=== PATIENT | male | born 1950 | race Caucasian/White ===

== ENCOUNTER 2022-10-23 11:53 | Inpatient (IN) | payer MEDICARE, OTHER ==
[~2022-10-23] VITALS: Ht 190.5 cm; Wt 109.8 kg
--- NOTE | 2022-10-23 13:20 | NUR ---
XRAY AT BEDSIDE
[2022-10-23] MEDS ORDERED: IV NS 0.9% 1,000 ML IV ONE (13:30)
[2022-10-23 13:52] LABS: BASOPHILS % (AUTO) 0.1 % (0.0-2.0); EOSINOPHILS % (AUTO) 0.2 % (0.0-6.0); HEMATOCRIT 44 % (39-51); HEMOGLOBIN 14.3 g/dL (13.5-17.5); LYMPHOCYTES # (AUTO) 0.5 K/uL (0.8-4.8); LYMPHOCYTES % (AUTO) 5.3 % (20.0-44.0); MEAN CORPUSCULAR HGB CONC 33 g/dl (31.0-36.0); MEAN CORPUSCULAR VOLUME 97 fL (80-96); MONOCYTES # (AUTO) 0.7 K/uL (0.1-1.30); MONOCYTES % (AUTO) 7.1 % (2.0-12.0); NEUTROPHILS % (AUTO) 87.3 % (43.0-81.0); PLATELET COUNT (AUTO) 223 K/uL (150-450); RED BLOOD CELL COUNT(AUTO) 4.49 MIL/uL (4.5-6.0); WHITE BLOOD COUNT (AUTO) 10.3 K/uL (4.3-11.0)
[2022-10-23 14:01] LABS: CALCIUM, SERUM 8.5 mg/dL (8.5-10.1); CARBON DIOXIDE 20 mmol/L (21-32); CHLORIDE 97 mmol/L (98-107); CREATININE 7.4 mg/dL (0.6-1.3); GLUCOSE 114 mg/dL (74-106); POTASSIUM 4.4 mmol/L (3.5-5.1); SODIUM SERUM 136 mmol/L (136-145)
--- NOTE | 2022-10-23 14:33 | NUR ---
Pt in room laying with hob elevated. Able to answer questions. Alert and oriented times 4. NO distress noted. Call light within reach.
[2022-10-23 14:47] LABS: UREA NITROGEN, BLOOD 130 mg/dL (7-18)
[2022-10-23] MEDS ORDERED: FUROSEMIDE 40 MG/4 ML VIAL ONE (14:57)
--- NOTE | 2022-10-23 14:59 | NUR ---
MOVE SHEET SUBMITTED.
[2022-10-23] MEDS ORDERED: FUROSEMIDE 40 MG/4 ML VIAL IV ONE (15:00)
--- NOTE | 2022-10-23 15:02 | NUR ---
Pt went to ct scan
--- NOTE | 2022-10-23 15:29 | NUR ---
[facility] CALLED MAKE UP ARTIST PAGED.
--- NOTE | 2022-10-23 16:29 | NUR ---
COVID SWAB COLLECTED AND SENT TO LAB
--- NOTE | 2022-10-23 17:09 | NUR ---
[facility] CALLED BENEFITS OFFICER PAGED.
[2022-10-23] MEDS ORDERED: ONDANSETRON HCL/PF 4 MG/2 ML VIAL IVP PRN (17:30)
[2022-10-23] MEDS ORDERED: ACETAMINOPHEN 325 MG TABLET PO PRN (17:30)
--- NOTE | 2022-10-23 18:11 | NUR ---
OLLIE ARGUELLO [phone] BROTHER
--- NOTE | 2022-10-23 19:12 | NUR ---
Pt in bed with head of bed elevated. Able to answer questions. Breathing even and unlabored. Using urinal at bedside. No signs of distress noted.
--- NOTE | 2022-10-23 19:51 | NUR ---
TERRITORY SUPERVISOR AT PT'S BEDSIDE
--- NOTE | 2022-10-23 20:33 | NUR ---
REPORT GIVEN TO BILLY MASON RN FOR JAYCE
[2022-10-23] MEDS ORDERED: HEPARIN SODIUM, PORCINE 5000 UNITS/1 ML VIAL SQ SCH (21:00)
--- NOTE | 2022-10-23 21:12 | NUR ---
US TECH AT PT'S BEDSIDE
--- NOTE | 2022-10-23 21:38 | NUR ---
+dvt R proximal mid superficial femoral vein, R popliteal vein
--- NOTE | 2022-10-23 21:44 | NUR ---
+dvt R proximal mid superficial femoral vein, R popliteal vein Notified Dustin ANDREW
--- NOTE | 2022-10-23 22:12 | NUR ---
PT TRANSFERRED TO [facility] 113-2 VIA ACLS PROTOCOL. VSS. ALL BELONGINGS WITH PT
--- NOTE | 2022-10-23 22:30 | NUR ---
ELECTRICIAN SHIPPALLET STONE POSITIONER NOTE RECEIVED REPORT FROM [facility] LUX-RN AND PATIENT WAS BROUGHT TO THE UNIT AT AROUND 2215 VIA STRETCHER ACCOMPANIED BY 2 STAFFS. PATIENT IS ALERT AND ORIENTED X4. ABLE TO MAKE NEEDS KNOWN. AFEBRILE AND NOT IN ANY FORM OF ACUTE DISTRESS. BREATHING EVEN AND NON LABORED. PATIENT WAS ADMITTED D/T S/P FALL AND WAS DIAGNOSED WITH ACUTE KIDNEY INJURY. VENOUS ULTRASOUND WAS DONE AND PATIENT WAS NOTED WITH DVT ON R PROXIMAL AND MID SUPERFICIAL FEMORAL VEIN, CAREY WEBSTER ALREADY MADE AWARE BY ER STAFF. EXPLAINED ADMISSION PROCESS WHICH INCLUDES SKIN ASSESSMENT WHICH THE PATIENT AGREED. NOTED WITH SKIN DISCOLORATION ON UPPER AND LOWER EXTREMITIES AND SKIN TEAR ON SACRAL AREA. EDEMA WAS ALSO NOTED ON BLE. PATIENT WAS NOTED WITH IV ACCESS ON RAC 20G-SL. VITALS TAKEN AND BELONGINGS AND VALUABLES CHECKED AND DOCUMENTED BY ASSIGNED STAFF. ORIENTED TO THE ENVIRONMENT. CHANGED TO HOSPITAL GOWN AND CLINT CARE DONE. SAFETY MEASURES IN PLACE. KEPT BED IN LOCKED AND IN LOW POSITION. SIDE RAILS UP X2. ADVISED TO USE THE CALL LIGHT WHEN IN NEED OF ASSISTANCE.
--- NOTE | 2022-10-23 23:20 | NUR ---
2320 CAREY Chan in the unit and examined patient with order to start patient on Heparin drip for NON ACS protocol and to insert midline. Orders noted, PICC line nurse Mahad notified.
--- NOTE | 2022-10-23 23:25 | NUR ---
SUPERVISOR FLOOR ASSEMBLY NOTE SITE INSPECTOR TU CAME AND INSERTED MIDLINE 18G ON CHARLES, PATIENT TOLERATED THE PROCEDURE WELL.
[2022-10-23] MEDS ORDERED: HEPARIN INFUSION/D5W 500 ML IV ONE (23:44)
[2022-10-24] VITALS (8 sets, daily range): BP systolic 91–117; BP diastolic 42–89
--- NOTE | 2022-10-24 00:15 | NUR ---
0015 Heparin bolus 8000 units and starting infusion dose of 1800units/hr verified with pharmacist Laya. Per pharmacist ok to give 8000 units bolus once.
[2022-10-24] MEDS ORDERED: HEPARIN SODIUM, PORCINE 5000 UNITS/1 ML VIAL IV ONE (01:00)
[2022-10-24] MEDS: HEPARIN INFUSION/D5W 500 ML IV PRN ×2 (01:39→19:32)
--- NOTE | 2022-10-24 06:30 | NUR ---
313-2 FAMILY MEDIATOR CLOSING NOTE PATIENT ON BED, WITH HOB ELEVATED, ALERT AND ORIENTED X2. ABLE TO MAKE NEEDS KNONWS. ON O2 INHALATION VIA NASAL CANNULA AT 2LPM. WITH IV ACCESS ON CHARLES MIDLINE 18G, ON HEPARIN DRIP (1800 UNITS), MONITORED FOR ANY S/SX. OF BLEEDING. ON TELE MONITORING WITH CURRENT READING OF SR 79. MEDICATED ORDERED. SAFETY MEASURES IN PLACE. KEPT BED IN LOCKED AND IN LOW POSITION. SIDE RAILS UP X2. ADVISED TO USE THE CALL LIGHT WHEN IN NEED OF ASSISTANCE. ALL NURSING NEEDS ATTENDED. ENDORSED TO INCOMING SHIFT FOR CONTINUITY OF CARE.
[2022-10-24 07:30] LABS: BASOPHILS % (AUTO) 0.1 % (0.0-2.0); EOSINOPHILS % (AUTO) 0.3 % (0.0-6.0); HEMATOCRIT 37 % (39-51); HEMOGLOBIN 11.9 g/dL (13.5-17.5); LYMPHOCYTES # (AUTO) 0.4 K/uL (0.8-4.8); LYMPHOCYTES % (AUTO) 5.4 % (20.0-44.0); MEAN CORPUSCULAR HGB CONC 32 g/dl (31.0-36.0); MEAN CORPUSCULAR VOLUME 98 fL (80-96); MONOCYTES # (AUTO) 1.2 K/uL (0.1-1.30); MONOCYTES % (AUTO) 14.3 % (2.0-12.0); NEUTROPHILS # (AUTO) 6.6 K/uL (1.8-8.9); NEUTROPHILS % (AUTO) 79.9 % (43.0-81.0); PLATELET COUNT (AUTO) 202 K/uL (150-450); RED BLOOD CELL COUNT(AUTO) 3.74 MIL/uL (4.5-6.0); WHITE BLOOD COUNT (AUTO) 8.2 K/uL (4.3-11.0)
[2022-10-24 08:07] LABS: ALANINE AMINOTRANSFERASE 56 U/L (12-78); ALBUMIN 2.1 g/dL (3.4-5.0); ALKALINE PHOSPHATASE 69 U/L (46-116); ASPARTATE AMINOTRANSFERASE 131 U/L (15-37); BILIRUBIN,TOTAL 0.7 mg/dL (0.2-1.0); CALCIUM, SERUM 7.6 mg/dL (8.5-10.1); CARBON DIOXIDE 14 mmol/L (21-32); CHLORIDE 100 mmol/L (98-107); CREATININE 7.1 mg/dL (0.6-1.3); GLUCOSE 108 mg/dL (74-106); MAGNESIUM 3.2 mg/dL (1.8-2.4); PHOSPHORUS 7.4 mg/dL (2.5-4.9); POTASSIUM 4.1 mmol/L (3.5-5.1); SODIUM SERUM 136 mmol/L (136-145); TOTAL PROTEIN, SERUM 6.8 g/dL (6.4-8.2)
[2022-10-24 08:11] LABS: UREA NITROGEN, BLOOD 143 mg/dL (7-18)
--- NOTE | 2022-10-24 09:53 | NUR ---
RN NOTE PTT AT THIS TIME IS 122.4. HOLDING HEPARIN DRIP FOR 1 HOUR, PER PROTOCOL. WILL DECREASE DOSE RATE BY 3 UNITS AT THAT TIME. AWARE.
[2022-10-24] MEDS: MORPHINE SULFATE INJ 2 MG/ML DISP.SYRIN IV PRN ×3 (10:26→13:39)
--- NOTE | 2022-10-24 11:45 | NUR ---
RN NOTE PER MD ORDER, HOLD HEPARIN DURING MRI. CONSENT SIGNED AND PLACED IN CHART.
[2022-10-24] MEDS: IV NS 0.9% 1,000 ML IV SCH ×3 (12:13→22:00)
--- NOTE | 2022-10-24 13:50 | NUR ---
RN NOTE PATIENT PICKED UP FOR MRI VIA GURNEY WITH TRANSPORTATION CREW. HEPARIN ON HOLD AT THIS TIME.
[2022-10-24] MEDS ORDERED: VANCOMYCIN 1.25 GM in IV D5W 250 ML IV SCH (14:00)
[2022-10-24] MEDS: CEFEPIME 2 GM in IV D5W 100 ML IV SCH (16:56)
[2022-10-24] MEDS ORDERED: IV NS 0.9% 250 ML IV PRN (17:00)
--- NOTE | 2022-10-24 20:41 | NUR ---
BENCH ASSEMBLY INSPECTOR OPENING NOTES: RECEIVED PATIENT AWAKE IN BED, BED IN LOW POSITION, CALL LIGHTS WITHIN REACH, NO COMPLAIN OF PAIN AND DISCOMFORT AT THIS TIME, ON O2 INAHALATION AT 2LPM SATURATING WELL, PATIENT IS A/OX 2-3, ON TELE MONITOR- SR-69, WITH ONGOING HEPARIN DRIP AT 1500 UNIT/HR INFUSING WELL, IV LINE AT RAC#20 WITH ONGOING [id number]/HR INFUSING WELL, PATIENT KEPT CLEAN AND DRY ALL NEEDS MET WILL CONTINUE TO MONITOR.
--- NOTE | 2022-10-24 20:44 | NUR ---
DEPUTY FIRE MARSHAL CLOSING NOTE PATIENT ON BED, WITH HOB ELEVATED, ALERT AND ORIENTED X3. ABLE TO MAKE NEEDS KNOWN. ON O2 INHALATION VIA NASAL CANNULA AT 2LPM. WITH IV ACCESS ON CHARLES MIDLINE 18G, ON HEPARIN DRIP (1500 UNITS), MONITORED FOR ANY S/SX. OF BLEEDING. ON TELE MONITORING WITH CURRENT READING OF SR 79. MEDICATED ORDERED. SAFETY MEASURES IN PLACE. KEPT BED IN LOCKED AND IN LOW POSITION. SIDE RAILS UP X2. ADVISED TO USE THE CALL LIGHT WHEN IN NEED OF ASSISTANCE. ALL NURSING NEEDS ATTENDED. ENDORSED TO INCOMING SHIFT FOR CONTINUITY OF CARE.
[2022-10-24] MEDS: THERAHONEY GEL 1.5 OZ TUBE TP SCH (21:33)
[2022-10-25 01:00] VITALS: BP 90/55
--- NOTE | 2022-10-25 02:00 | NUR ---
RN NOTES: PATIENT REFUSED POLY CATHETER OFFERED BUT PATIENT REFUSED PATIENT IS A/OX4
[2022-10-25] MEDS: IV NS 0.9% 1,000 ML IV SCH ×5 (03:02→23:20)
[2022-10-25 05:00] VITALS: BP 110/70
--- NOTE | 2022-10-25 06:40 | NUR ---
TROUBLE CLERK CLOSING NOTES: PATIENT SLEEP IN BED COMFORTABLY, BED IN LOW POSITION CALL LIGHTS WITHIN REACH, NO COMPLAIN OF PAIN AND DISCOMFORT AT THIS TIME, ON O2 INHALATION AT 2LPM SATURATING WWELL, PATIENT ON ANDERSON CATHETER- 550 URINE OUTPUT, ON TELE MONITOR- SR-72, PATIEN WITH RUAML WITH ONGOING HEPARIN DRIP AT 1500UNIT/HR WITH IV LINE AT RAC#20 WITH ONGOING 0.9NSS@200ML/HR INFUSING WELL, PATIENT KEPT CLEAN AND DRY ALL NEEDS MET ENDORSE TO INCOMING SHIFT.
--- NOTE | 2022-10-25 07:07 | NUR ---
RN NOTES: RECEIVED A CRITICAL LABS OF PTT OF 77.4 NOTED AND CARRY OUT.
[2022-10-25 07:22] LABS: CALCIUM, SERUM 6.6 mg/dL (8.5-10.1); CARBON DIOXIDE 17 mmol/L (21-32); CHLORIDE 102 mmol/L (98-107); CREATININE 5.9 mg/dL (0.6-1.3); GLUCOSE 114 mg/dL (74-106); POTASSIUM 3.2 mmol/L (3.5-5.1); SODIUM SERUM 137 mmol/L (136-145)
[2022-10-25 07:25] LABS: UREA NITROGEN, BLOOD 145 mg/dL (7-18)
[2022-10-25 08:00] VITALS: BP 90/53
[2022-10-25] MEDS: HEPARIN INFUSION/D5W 500 ML IV PRN ×2 (09:04→13:30)
[2022-10-25] MEDS: THERAHONEY GEL 1.5 OZ TUBE TP SCH (09:05)
--- NOTE | 2022-10-25 10:22 | NUR ---
WOUND CARE CONSULT: PT PRESENTS WITH LARGE SACRAL DEEP TISSUE INJURY IN EVOLUTION WHICH EXTENDS TO BILATERAL BUTTOCKS, MID/LOW BACK INTACT DEEP TISSUE INJURY, MULTIPLE AREAS OF SKIN DISCOLORATION AND LOWER EXTREMITY WOUNDS (FOLLOWED BY DPM), ALL PRESENT ON ADMISSION. DR DARIUSZ ADEN CALLED FOR SURGICAL CONSULT. DISCUSSED SKIN PROTECTION AND WOUND CARE RECOMMENDATIONS WITH NURSING STAFF. FIRST STEP LOW AIRLOSS MATTRESS IS ON ORDER. PT BECOMES ANGRY/IRRITABLE AND YELLS AT TIMES. PT IS INCONTINENT. MD IN AGREEMENT WITH PLAN OF CARE. Addendum: 10/25/22 at 1025 by CATHERINE BLEDSOE WNDNU Amended: Links added.
--- NOTE | 2022-10-25 11:45 | NUR ---
rn notes: per night time babysitter nurse pt refuses sim cathter, but ok with condom catheter, placed condom cath
[2022-10-25 12:00] VITALS: BP 88/34
--- NOTE | 2022-10-25 13:04 | NUR ---
RN notes: spoke to dr Deluna bp manually 88/34 and by automatic cuff 78/36 with order to give ns 500 ml bolus
[2022-10-25] MEDS: CEFEPIME 2 GM in IV D5W 100 ML IV SCH (13:06)
[2022-10-25] MEDS ORDERED: IV NS 0.9% 500 ML IV ONE (13:30)
--- NOTE | 2022-10-25 14:28 | NUR ---
SS consult requested for pt. who comes from home with pressure wounds. SW will follow up at a later time.
--- NOTE | 2022-10-25 14:53 | NUR ---
RN notes: rechecked bp 90/[address] england start midodrine 10 mg TID
--- NOTE | 2022-10-25 15:04 | NUR ---
rn notes; ptt 67.2 no changes on heparin drip
[2022-10-25 16:00] VITALS: BP 125/72
[2022-10-25] MEDS: MIDODRINE HCL (5MG) 5 MG TABLET PO SCH (17:05)
--- NOTE | 2022-10-25 17:11 | NUR ---
RN NOTES: BP 88/40 MIDODRINE GIVEN PO
--- NOTE | 2022-10-25 17:17 | NUR ---
RN NOTES: DR TEMPLE ORDERED CARDIOLOGY CONSULT WITH DR HEDRICK , DR HEDRICK AWARE WILL COME TO SEE PT
--- NOTE | 2022-10-25 19:19 | NUR ---
MAINTENANCE MECHANIC HELPER CLOSING NOTE PATIENT ON BED, WITH HOB ELEVATED, ALERT AND ORIENTED X3. ABLE TO MAKE NEEDS KNOWN. ON O2 INHALATION VIA NASAL CANNULA AT 2LPM. WITH IV ACCESS ON CHARLES MIDLINE 18G, ON HEPARIN DRIP (1300 UNITS),IV FLUID RUNNING NS AT 200ML/HR. MONITORED FOR ANY S/SX. OF BLEEDING. ON TELE MONITORING WITH CURRENT READING OF SR 75. ALL MEDICINE GIVEN ORDERED. SAFETY MEASURES IN PLACE. KEPT BED IN LOCKED AND IN LOW POSITION. SIDE RAILS UP X2.. ALL NEEDS ATTENDED. ENDORSED TO INCOMING SHIFT FOR CONTINUITY OF CARE.
--- NOTE | 2022-10-25 19:30 | NUR ---
RN NOTE RECEIVED PATIENT IN BED, ON SEMI SALAS'S, AO X 3-4, IN NO ACUTE DISTRESS, SATURATION AT 96% ON 2L NC, SR ON THE MONITOR, HR IS 90. IV LINE AT RAC 20G AND CHARLES MIDLINE PATENT AND FLUSHING WELL WITH NS AT 200 ML/HR, AND HEPARIN DRIP AT 1300 UNITS PER HR. NO SIGN OF BLEEDING NOTED. SAFETY MEASURES IN PLACE, BED IS LOCKED AND AT LOWEST POSITION, BED ALARM IS ON, HOB ELEVATED, CALL LIGHT WITHIN REACH OF PATIENT. WILL CONTINUE TO MONITOR AND REASSESS.
[2022-10-25 20:00] VITALS: BP 86/43
[2022-10-26] VITALS: BP 91/40
[2022-10-26 04:00] VITALS: BP 91/46
[2022-10-26] MEDS: IV NS 0.9% 1,000 ML IV SCH ×2 (04:12→09:36)
[2022-10-26 07:11] LABS: BASOPHILS % (AUTO) 0.1 % (0.0-2.0); EOSINOPHILS % (AUTO) 1.1 % (0.0-6.0); HEMATOCRIT 32 % (39-51); HEMOGLOBIN 10.6 g/dL (13.5-17.5); LYMPHOCYTES # (AUTO) 0.5 K/uL (0.8-4.8); LYMPHOCYTES % (AUTO) 9.8 % (20.0-44.0); MEAN CORPUSCULAR HGB CONC 33 g/dl (31.0-36.0); MEAN CORPUSCULAR VOLUME 96 fL (80-96); MONOCYTES # (AUTO) 0.3 K/uL (0.1-1.30); MONOCYTES % (AUTO) 5.4 % (2.0-12.0); NEUTROPHILS # (AUTO) 4.5 K/uL (1.8-8.9); NEUTROPHILS % (AUTO) 83.6 % (43.0-81.0); PLATELET COUNT (AUTO) 219 K/uL (150-450); RED BLOOD CELL COUNT(AUTO) 3.33 MIL/uL (4.5-6.0); WHITE BLOOD COUNT (AUTO) 5.3 K/uL (4.3-11.0)
--- NOTE | 2022-10-26 07:25 | NUR ---
RECYCLE WORKER OPEN NOTE: ALERT AND ORIENTED TIMES 3. UNLABORED BREATHING, SATING AT 995 % ROOM AIR. HEALTH INFORMATION MANAGER SINUS RHYTHM 70'S. RIGHT AC IV PERPHERAL INTACT PATENT, CHARLES ML PATENT, NO S/S OF COMPLICATIONS. IV FLUIDS OF N 200ML/HR. HEPARIN DRIP OF 1300 UNITS/HR. NO S/S OF BLEEDING. CONDOM CATH IN PLACE WITH YELLOW URINE. LEFT FOREARM IV SALINE LOCKED IV PATENT. BILATERAL LOWER FEET WOUNDS WITH CLEAN DRESSINGS. HOB ELEVATED AT SEMI-FOWLERS POSITION. BILATERAL HALF SIDE RAILS UP X2. BED LOCKED, IN LOW POSITION. CALL LIGHT IN REACH. KEPT CLEAN AND COMFORTABLE.
[2022-10-26 08:00] VITALS: BP 97/53
[2022-10-26 08:15] LABS: CALCIUM, SERUM 6.4 mg/dL (8.5-10.1); CARBON DIOXIDE 16 mmol/L (21-32); CHLORIDE 107 mmol/L (98-107); CREATININE 4.5 mg/dL (0.6-1.3); GLUCOSE 104 mg/dL (74-106); MAGNESIUM 2.2 mg/dL (1.8-2.4); PHOSPHORUS 6.2 mg/dL (2.5-4.9); POTASSIUM 3.1 mmol/L (3.5-5.1); SODIUM SERUM 139 mmol/L (136-145)
[2022-10-26 08:25] LABS: UREA NITROGEN, BLOOD 125 mg/dL (7-18)
[2022-10-26] MEDS: MIDODRINE HCL (5MG) 5 MG TABLET PO SCH ×3 (09:30→16:51)
[2022-10-26] MEDS: THERAHONEY GEL 1.5 OZ TUBE TP SCH (09:39)
[2022-10-26] MEDS: HEPARIN INFUSION/D5W 500 ML IV PRN (10:44)
[2022-10-26 12:00] VITALS: BP 96/50
[2022-10-26] MEDS: CEFEPIME 2 GM in IV D5W 100 ML IV SCH (12:24)
[2022-10-26] MEDS ORDERED: VANCOMYCIN 1.25 GM in IV D5W 250 ML IV SCH (13:00)
[2022-10-26] MEDS: IV NS 0.9% 1,000 ML IV PRN ×2 (15:07→20:45)
[2022-10-26 16:00] VITALS: BP 96/51
--- NOTE | 2022-10-26 18:47 | NUR ---
DRESS DRAPER CLOSING NOTE: ALERT AND ORIENTED TIMES 3. UNLABORED BREATHING, SATING AT 97 % ROOM AIR. MICROFILM CAMERA OPERATOR SINUS RHYTHM. RIGHT AC IV PERPHERAL INTACT. PATENT, CHARLES ML PATENT, NO S/S OF COMPLICATIONS. IV FLUIDS OF N 200ML/HR. HEPARIN DRIP OF 1300 UNITS/HR. NO S/S OF BLEEDING. CONDOM CATH IN PLACE WITH YELLOW URINE. LEFT FOREARM IV SALINE LOCKED IV PATENT. WOUND CARE PROVIDED ORDERED. HOB ELEVATED AT SEMI-FOWLERS POSITION. BILATERAL HALF SIDE RAILS UP X2. BED LOCKED, IN LOW POSITION. CALL LIGHT IN REACH. KEPT CLEAN AND COMFORTABLE.
--- NOTE | 2022-10-26 19:10 | NUR ---
RN NOTES: RECEIVED LYING COMFORTABLY IN BED,ON ROOM AIR, A/OX2-3, ORIENTED TO UNIT AND STAFF, ON TELE MONITOR SR-87, CHARLES ML WITH IVF OF NS AT 200 ML/HR, RAC G#20- HEPARIN DRIP-1300 UNITS/HR, CONDOM CATH DRAINING INTO YELLOWISH COLORED URINE AT 100CC LEVEL, HE HAS MULTIPLE WOUND, AND PRESSURE ULCER, FOR LABS IN THE MORNING.
--- NOTE | 2022-10-26 20:45 | NUR ---
RN NOTES: IVF CONSUMED, NEW BOTTLE REPLACED NS AT 200 ML/HR, UNABLE TO SCAN THE BOTTLE, MANUALLY PUT IN BAR CODE.
[2022-10-26 21:10] VITALS: BP 100/49
[2022-10-27] VITALS: BP 97/44
--- NOTE | 2022-10-27 01:00 | NUR ---
RN NOTES: TURNED AND REPOSITIONED, HE HAD LARGE BM, SPONGE BATH RENDERED, DRESSING DONE ON THE RIGHT, LEFT FOOT, ALSO PS ON THE SACRAL AREA, ALL DRESSING CHANGE.
[2022-10-27 04:00] VITALS: BP 95/48
[2022-10-27] MEDS: IV NS 0.9% 1,000 ML IV PRN ×3 (04:46→18:57)
--- NOTE | 2022-10-27 04:47 | NUR ---
RN NOTES: IVF CONSUMED CHANGE TO NEW BAG NS AT 200 ML/HR.
--- NOTE | 2022-10-27 05:54 | NUR ---
RN NOTES: CONDOM CATH WAS OUT, CLEAN AND CHANGE, REINSERT NEW CONDOM.
[2022-10-27] MEDS: HEPARIN INFUSION/D5W 500 ML IV PRN (06:22)
--- NOTE | 2022-10-27 06:56 | NUR ---
RN NOTES: WHILE CHANGING THE PATIENT, SCRAP MATERIALS BUYER CAME TO EXTRACT HIS BLOOD FOR PTT, NO SIGN OF BLEEDING NOTED, NO BLEEDING IN THE GUMS, ORIFICE, NO MELENA, NO HEMATURIA, NO NEW SKIN DISCOLORATION NOTED.FOR LABS THIS MORNING, CONTINUE ON HEPARIN DRIP, IVF OF NS AT 75 ML/HR, STABLE IN THE NIGHT, ENDORSED FOR CONTINUITY OF CARE.
[2022-10-27 07:03] LABS: BASOPHILS % (AUTO) 0.2 % (0.0-2.0); EOSINOPHILS % (AUTO) 1.1 % (0.0-6.0); HEMATOCRIT 32 % (39-51); HEMOGLOBIN 10.7 g/dL (13.5-17.5); LYMPHOCYTES # (AUTO) 0.5 K/uL (0.8-4.8); LYMPHOCYTES % (AUTO) 5.9 % (20.0-44.0); MEAN CORPUSCULAR HGB CONC 34 g/dl (31.0-36.0); MEAN CORPUSCULAR VOLUME 96 fL (80-96); MONOCYTES # (AUTO) 0.5 K/uL (0.1-1.30); MONOCYTES % (AUTO) 5.3 % (2.0-12.0); NEUTROPHILS % (AUTO) 87.5 % (43.0-81.0); PLATELET COUNT (AUTO) 331 K/uL (150-450); RED BLOOD CELL COUNT(AUTO) 3.34 MIL/uL (4.5-6.0); WHITE BLOOD COUNT (AUTO) 9.1 K/uL (4.3-11.0)
[2022-10-27 07:10] LABS: CALCIUM, SERUM 6.8 mg/dL (8.5-10.1); CARBON DIOXIDE 18 mmol/L (21-32); CHLORIDE 110 mmol/L (98-107); CREATININE 3.7 mg/dL (0.6-1.3); GLUCOSE 112 mg/dL (74-106); PHOSPHORUS 5.6 mg/dL (2.5-4.9); SODIUM SERUM 142 mmol/L (136-145)
--- NOTE | 2022-10-27 07:10 | NUR ---
RN NOTE RECEIVED PATIENT IN BED ASLEEP BUT EASILY AROUSABLE. IN NO S/SX OF ACUTE DISTRESS AT THIS TIME.ON 2 LITER OXYGEN VIA NASAL CANNULA WITH 02 SAT >95% AT THIS TIME. IV ACCESS: R UA MIDLINE PATENT, INTACT AND FLUSHING WELL..CONDOM CATH SECURED AND INTACT . WILL ENSURE SAFETY MEASURES WITHIN THE SHIFT. PATIENT BED ALARM IS ON. HEAD OF BED ELEVATED. BED IS LOCKED, IN LOWEST POSITION AND SIDE RAILS UP. CALL LIGHT WITHIN REACH OF THE PATIENT. WILL CONTINUE TO MONITOR AND REASSESS FOR ANY CHANGES AND WILL CARRY OUT ANY ONGOING AND ACTIVE MD ORDER.
[2022-10-27 07:13] LABS: POTASSIUM 2.8 mmol/L (3.5-5.1)
[2022-10-27 07:14] LABS: UREA NITROGEN, BLOOD 105 mg/dL (7-18)
--- NOTE | 2022-10-27 07:21 | NUR ---
RN NOTES: RECEIVED PTT 49 PER PROTOCOL CONTINUE SAME HEPARIN DOSE AND PTT TOMORROW AM
--- NOTE | 2022-10-27 07:25 | NUR ---
left message to for his k level was 2.8 waiting for returning call back
[2022-10-27 08:00] VITALS: BP 105/74
[2022-10-27] MEDS: MIDODRINE HCL (5MG) 5 MG TABLET PO SCH ×3 (09:04→17:14)
[2022-10-27] MEDS: THERAHONEY GEL 1.5 OZ TUBE TP SCH (09:04)
[2022-10-27] MEDS ORDERED: POTASSIUM CHLORIDE 20 MEQ TAB.PRT.SR PO ONE (10:00)
[2022-10-27 12:00] VITALS: BP 102/48
[2022-10-27] MEDS: VANCOMYCIN HCL 0.75 GM in IV D5W 250 ML IV SCH (13:21)
[2022-10-27] MEDS: CEFEPIME 2 GM in IV D5W 100 ML IV SCH (13:29)
[2022-10-27 16:00] VITALS: BP 96/56
[2022-10-27 20:00] VITALS: BP 108/53
[2022-10-28] VITALS: BP 107/56
[2022-10-28 04:00] VITALS: BP 131/66
--- NOTE | 2022-10-28 07:10 | NUR ---
RN NOTE RECEIVED PATIENT IN BED AWAKE ALERT AND ORIENTED X 4. IN NO S/SX OF ACUTE DISTRESS AT THIS TIME.ON 2 LITER OXYGEN VIA NASAL CANNULA WITH 02 SAT >95% AT THIS TIME. IV ACCESS: R UA MIDLINE PATENT, INTACT AND FLUSHING WELL..CONDOM CATH SECURED AND INTACT .ON HEPARIN DRIP RUNNING AT 1300 UNIT/HR, NO BLEEDING NOTED.ON IV FLUID RUNNING NS AT 200 ML/HR. WILL ENSURE SAFETY MEASURES WITHIN THE SHIFT. PATIENT BED ALARM IS ON. HEAD OF BED ELEVATED. BED IS LOCKED, IN LOWEST POSITION AND SIDE RAILS UP. CALL LIGHT WITHIN REACH OF THE PATIENT. WILL CONTINUE TO MONITOR AND REASSESS FOR ANY CHANGES AND WILL CARRY OUT ANY ONGOING AND ACTIVE MD ORDER.
[2022-10-28 07:56] LABS: BASOPHILS % (AUTO) 0.1 % (0.0-2.0); EOSINOPHILS % (AUTO) 1.3 % (0.0-6.0); HEMATOCRIT 30 % (39-51); HEMOGLOBIN 9.9 g/dL (13.5-17.5); LYMPHOCYTES # (AUTO) 0.6 K/uL (0.8-4.8); LYMPHOCYTES % (AUTO) 6.3 % (20.0-44.0); MEAN CORPUSCULAR HGB CONC 33 g/dl (31.0-36.0); MEAN CORPUSCULAR VOLUME 97 fL (80-96); MONOCYTES # (AUTO) 0.6 K/uL (0.1-1.30); MONOCYTES % (AUTO) 5.9 % (2.0-12.0); NEUTROPHILS # (AUTO) 8.3 K/uL (1.8-8.9); NEUTROPHILS % (AUTO) 86.4 % (43.0-81.0); PLATELET COUNT (AUTO) 356 K/uL (150-450); RED BLOOD CELL COUNT(AUTO) 3.08 MIL/uL (4.5-6.0); WHITE BLOOD COUNT (AUTO) 9.6 K/uL (4.3-11.0)
[2022-10-28 08:00] VITALS: BP 92/43
[2022-10-28 08:14] LABS: CARBON DIOXIDE 16 mmol/L (21-32); CHLORIDE 113 mmol/L (98-107); CREATININE 2.9 mg/dL (0.6-1.3); GLUCOSE 103 mg/dL (74-106); MAGNESIUM 1.6 mg/dL (1.8-2.4); PHOSPHORUS 5.1 mg/dL (2.5-4.9); SODIUM SERUM 144 mmol/L (136-145)
[2022-10-28 08:20] LABS: POTASSIUM 2.7 mmol/L (3.5-5.1); UREA NITROGEN, BLOOD 82 mg/dL (7-18)
--- NOTE | 2022-10-28 08:28 | NUR ---
notified to Dr.Santa redd; patient's potassium level was 2.7 waiting fpr retirmomg [jpme ca;;
[2022-10-28] MEDS: MIDODRINE HCL (5MG) 5 MG TABLET PO SCH ×3 (08:35→16:12)
--- NOTE | 2022-10-28 08:40 | NUR ---
WOUND CARE FOLLOW UP: NURSING STAFF REQUESTING RE-EVALUATION OF SACRAL DEEP TISSUE INJURY WHICH IS HUGE AND EXTENDS TO BILATERAL BUTTOCKS, PRESENT ON ADMISSION. COLOR IS NOW BROWN/BLACK WITH SMALL AMOUNT OF RED COLOR AT EDGES. PT IS INCONTINENT OF LOOSE STOOL. RECOMMENDATIONS MADE FOR SKIN PROTECTION AND WOUND CARE. WOUND TREATMENT ORDER WAS UPDATED AND DISCUSSED WITH NURSING STAFF. PT SCREAMS AND BECOMES VERY ANGRY WHEN TOUCHED, EVEN WHEN PROCEDURE EXPLAINED WELL IMPORTANCE OF TURNING/REPOSITIONING AND WOUND CARE/CLEANSING OF SKIN. SURGICAL CONSULT WAS REQUESTED. AWAITING SURGICAL CONSULT. MD IN AGREEMENT WITH PLAN OF CARE. PT IS ON FIRST STEP [facility].
[2022-10-28] MEDS: THERAHONEY GEL 1.5 OZ TUBE TP SCH (08:49)
[2022-10-28 09:07] LABS: LYMPHOCYTES % (MANUAL) 6 % (16-48); MONOCYTES % (MANUAL) 6 % (0-11.0); NEUTROPHILS % (MANUAL) 88 (42-76)
[2022-10-28] MEDS ORDERED: POTASSIUM CHLORIDE 20 MEQ POWDER PACKET PO SCH (10:00)
[2022-10-28] MEDS ORDERED: POTASSIUM CHLORIDE 20 MEQ POWDER PACKET PO ONE (10:00)
[2022-10-28] MEDS: DAKINS QUARTER STRENGTH (0.125%) 480 ML BOTTLE TOP SCH (11:01)
--- NOTE | 2022-10-28 11:31 | NUR ---
RN NOTES: RELAYED POTASSIUM 2.7 TO MONROY WITH ORDER OF KLORCON 80 MEQ PO X 1
[2022-10-28 12:00] VITALS: BP 108/57
[2022-10-28] MEDS ORDERED: NEPRO VAN 237 ML CAN PO PRN (12:00)
[2022-10-28] MEDS: CEFEPIME 2 GM in IV D5W 100 ML IV SCH (13:39)
[2022-10-28] MEDS: VANCOMYCIN HCL 0.75 GM in IV D5W 250 ML IV SCH (13:39)
--- NOTE | 2022-10-28 15:00 | NUR ---
rn notes: per the anaethesia dr fan and DR Deluna hold heparin drip at 1500 prior to the procedure bilateral buttock excisional debridement.heparin held as ordered.
[2022-10-28 16:00] VITALS: BP 100/59
--- NOTE | 2022-10-28 16:40 | NUR ---
SS NOTE: SS consult requested for this 72 year old male pt. who lives alone at home and presented with serious pressure sores upon admission. SW completed APS #[id number] for self-neglect.
--- NOTE | 2022-10-28 18:30 | NUR ---
RN NOTES: CHANGED PT , CONDOM CATH IS POUT, SPOKE TO DR TEMPLE WITH ORDER TO PLACE ANDERSON CATHETER, F/C INSERTED FR 16X10
--- NOTE | 2022-10-28 18:45 | NUR ---
RN NOTES: PICKED UP BY OR STAFF FOR THE PROCEDURE
[2022-10-28] MEDS ORDERED: MIDAZOLAM HCL 2 MG/2ML VIAL ONE (18:54)
[2022-10-28] MEDS ORDERED: FENTANYL PF 100MCG/2ML AMPUL ONE (18:55)
--- NOTE | 2022-10-28 19:46 | NUR ---
RN NOTES: VERBAL REPORT GIVEN TO FAYE MCDOWELL
[2022-10-28 20:00] VITALS: BP 101/51
--- NOTE | 2022-10-28 20:35 | NUR ---
RN NOTE RECEIVED VERBAL REPORT FROM AM SHIFT NURSE, PT LEFT FOR EXCISIONAL DEBRIDEMENT OF BILATERAL BUTTOCKS, CURRENTLY IN SURGERY.
--- NOTE | 2022-10-28 21:00 | NUR ---
RN NOTE PT IS BACK FROM THE SURGERY. PT IS A/O X 4, ABLE TO VERBALIZE NEEDS. NO S/SX OF ACUTE RESPI DISTRESS NOTED AT THIS TIME. NO SOB; NO PAIN. IV ACCESS IN CHARLES ML AND LFA NOTED, BOTH PATENT, INTACT AND FLUSHES WELL. NS RUNNING @ 200 CC/HR AND HEPARIN DRIP RESUMED @ 1300 U/HR PER DR. TEMPLE. FC IN PLACE, DRAINING YELLOW URINE BY GRAVITY. VS STABLE. ALL SAFETY MEASURES IN PLACE: BED LOCKED IN LOW POSITION, BED ALARM ON. SR UP X 2, CALL LIGHT WITHIN REACH. WILL CONTINUE TO MONITOR.
[2022-10-28] MEDS: IV NS 0.9% 1,000 ML IV PRN (23:19)
[2022-10-29] VITALS (7 sets, daily range): BP systolic 91–122; BP diastolic 43–75
[2022-10-29] MEDS: IV NS 0.9% 1,000 ML IV PRN ×3 (04:28→20:36)
[2022-10-29] MEDS: HEPARIN INFUSION/D5W 500 ML IV PRN ×2 (04:33→22:18)
--- NOTE | 2022-10-29 06:25 | NUR ---
RN NOTE NO SIGNIFICANT CHANGE T/O THE NIGHT. PT STILL ON HEPARIN DRIP @ 1300 U/HR. VS STABLE. ALL NEEDS MET. TURNED AND REPOSITIONED. WILL ENDORSE TO AM SHIFT NURSE FOR JAYCE.
[2022-10-29 07:28] LABS: BASOPHILS % (AUTO) 0.2 % (0.0-2.0); EOSINOPHILS % (AUTO) 0.9 % (0.0-6.0); HEMATOCRIT 29 % (39-51); HEMOGLOBIN 9.7 g/dL (13.5-17.5); LYMPHOCYTES # (AUTO) 0.6 K/uL (0.8-4.8); LYMPHOCYTES % (AUTO) 6.3 % (20.0-44.0); MEAN CORPUSCULAR HGB CONC 33 g/dl (31.0-36.0); MEAN CORPUSCULAR VOLUME 97 fL (80-96); MONOCYTES # (AUTO) 0.4 K/uL (0.1-1.30); MONOCYTES % (AUTO) 4.3 % (2.0-12.0); NEUTROPHILS % (AUTO) 88.3 % (43.0-81.0); PLATELET COUNT (AUTO) 323 K/uL (150-450); RED BLOOD CELL COUNT(AUTO) 3.03 MIL/uL (4.5-6.0)
--- NOTE | 2022-10-29 07:28 | NUR ---
RN OPENING NOTE RECEIVED PATIENT IN BED AWAKE ALERT AND ORIENTED X 4. IN NO S/SX OF ACUTE DISTRESS AT THIS TIME.ON ROOM AIR. IV ACCESS: R UA MIDLINE PATENT, INTACT AND FLUSHING WELL..CONDOM CATH SECURED AND INTACT .ON HEPARIN DRIP RUNNING AT 1300 UNIT/HR, NO BLEEDING NOTED.ON IV FLUID RUNNING NS AT 200 ML/HR. WILL ENSURE SAFETY MEASURES WITHIN THE SHIFT. PATIENT BED ALARM IS ON. HEAD OF BED ELEVATED. BED IS LOCKED, IN LOWEST POSITION AND SIDE RAILS UP. CALL LIGHT WITHIN REACH OF THE PATIENT.
[2022-10-29 07:45] LABS: CALCIUM, SERUM 6.8 mg/dL (8.5-10.1); CARBON DIOXIDE 13 mmol/L (21-32); CHLORIDE 113 mmol/L (98-107); CREATININE 2.7 mg/dL (0.6-1.3); GLUCOSE 101 mg/dL (74-106); MAGNESIUM 1.5 mg/dL (1.8-2.4); PHOSPHORUS 5.1 mg/dL (2.5-4.9); POTASSIUM 3.1 mmol/L (3.5-5.1); SODIUM SERUM 140 mmol/L (136-145); UREA NITROGEN, BLOOD 64 mg/dL (7-18)
--- NOTE | 2022-10-29 07:52 | NUR ---
RN NOTE PATIENT PTT 47.5 PER PROTOCOL NO CHANGE TO BE MADE ON CURRENT HEPARIN DRIP CURRENTLY RUNNING 1300 UNITS. WILL ORDER NEXT DAILY DRIP FOR 10/30/21 AT 0700
[2022-10-29] MEDS: DAKINS QUARTER STRENGTH (0.125%) 480 ML BOTTLE TOP SCH (08:27)
[2022-10-29] MEDS: MIDODRINE HCL (5MG) 5 MG TABLET PO SCH ×3 (08:27→17:25)
[2022-10-29] MEDS: THERAHONEY GEL 1.5 OZ TUBE TP SCH (08:27)
[2022-10-29] MEDS: VANCOMYCIN HCL 0.75 GM in IV D5W 250 ML IV SCH (12:48)
[2022-10-29] MEDS: CEFEPIME 2 GM in IV D5W 100 ML IV SCH (13:59)
--- NOTE | 2022-10-29 18:54 | NUR ---
RN CLOSING NOTE PATIENT IN BED AWAKE ALERT AND ORIENTED X 4. IN NO S/SX OF ACUTE DISTRESS AT THIS TIME.ON ROOM AIR. IV ACCESS: R UA MIDLINE PATENT, INTACT AND FLUSHING WELL.CONDOM CATH SECURED AND INTACT .ON HEPARIN DRIP RUNNING AT 1300 UNIT/HR, NO BLEEDING NOTED.ON IV FLUID RUNNING NS AT 200 ML/HR. WILL ENSURE SAFETY MEASURES WITHIN THE SHIFT. PATIENT BED ALARM IS ON. HEAD OF BED ELEVATED. BED IS LOCKED, IN LOWEST POSITION AND SIDE RAILS UP. CALL LIGHT WITHIN REACH OF THE PATIENT.
--- NOTE | 2022-10-29 19:30 | NUR ---
RN OPENING NOTE RECEIVED PATIENT IN BED AWAKE ALERT AND ORIENTED X 4. IN NO S/SX OF ACUTE RESPI DISTRESS NOTED AT THIS TIME. CURRENTLY ON ROOM AIR, TOLERATING WELL, SATING @ 96%. IV ACCESS: R UA MIDLINE PATENT, INTACT AND FLUSHING WELL. ON HEPARIN DRIP RUNNING AT 1300 UNIT/HR, NO BLEEDING NOTED. ON IV FLUID RUNNING NS AT 200 ML/HR. CONDOM CATH SECURED AND INTACT. ALL SAFETY MEASURES IN PLACE: BED LOCKED IN LOW POSITION, BED ALARM ON. HEAD OF BED ELEVATED. SIDE RAILS UP X 2. CALL LIGHT WITHIN REACH OF THE PATIENT. WILL CONTINUE TO MONITOR PT.
[2022-10-30] VITALS: BP 108/54
[2022-10-30] MEDS: IV NS 0.9% 1,000 ML IV PRN ×5 (01:34→23:16)
[2022-10-30 04:00] VITALS: BP 102/56
[2022-10-30 07:11] LABS: BASOPHILS % (AUTO) 0.1 % (0.0-2.0); EOSINOPHILS % (AUTO) 1.8 % (0.0-6.0); HEMATOCRIT 28 % (39-51); HEMOGLOBIN 9.4 g/dL (13.5-17.5); LYMPHOCYTES # (AUTO) 0.5 K/uL (0.8-4.8); LYMPHOCYTES % (AUTO) 7.4 % (20.0-44.0); MEAN CORPUSCULAR HGB CONC 33 g/dl (31.0-36.0); MEAN CORPUSCULAR VOLUME 97 fL (80-96); MONOCYTES # (AUTO) 0.3 K/uL (0.1-1.30); MONOCYTES % (AUTO) 4.2 % (2.0-12.0); NEUTROPHILS # (AUTO) 6.1 K/uL (1.8-8.9); NEUTROPHILS % (AUTO) 86.5 % (43.0-81.0); PLATELET COUNT (AUTO) 293 K/uL (150-450)
--- NOTE | 2022-10-30 07:26 | NUR ---
RN OPENING NOTE RECEIVED PATIENT IN BED AWAKE ALERT AND ORIENTED X 4. IN NO S/SX OF ACUTE RESPI DISTRESS NOTED AT THIS TIME. CURRENTLY ON ROOM AIR, TOLERATING WELL. IV ACCESS: R UA MIDLINE PATENT, INTACT AND FLUSHING WELL. ON HEPARIN DRIP RUNNING AT 1300 UNIT/HR, NO BLEEDING NOTED. ON IV FLUID RUNNING NS AT 200 ML/HR. CONDOM CATH SECURED AND INTACT. ALL SAFETY MEASURES IN PLACE: BED LOCKED IN LOW POSITION, BED ALARM ON. HEAD OF BED ELEVATED. SIDE RAILS UP X 2. CALL LIGHT WITHIN REACH OF THE PATIENT.
[2022-10-30 07:39] LABS: CARBON DIOXIDE 16 mmol/L (21-32); CHLORIDE 113 mmol/L (98-107); CREATININE 2.5 mg/dL (0.6-1.3); GLUCOSE 107 mg/dL (74-106); MAGNESIUM 1.4 mg/dL (1.8-2.4); PHOSPHORUS 4.7 mg/dL (2.5-4.9); SODIUM SERUM 141 mmol/L (136-145); UREA NITROGEN, BLOOD 57 mg/dL (7-18)
[2022-10-30 07:46] LABS: POTASSIUM 2.7 mmol/L (3.5-5.1)
[2022-10-30 08:00] VITALS: BP 106/57
--- NOTE | 2022-10-30 08:03 | NUR ---
RN NOTE PTT CAME BACK 61.3 PER POLICY NO CHANGES WILL BE MADE TO CURRENT DRIP OF 1300 UNITS. NEXT PTT TO BE DRAWN 10/31/2022 AT 0700. ORDERS PLACED
[2022-10-30] MEDS: MIDODRINE HCL (5MG) 5 MG TABLET PO SCH ×3 (08:15→16:37)
[2022-10-30] MEDS: DAKINS QUARTER STRENGTH (0.125%) 480 ML BOTTLE TOP SCH ×2 (08:15→12:08)
[2022-10-30] MEDS: THERAHONEY GEL 1.5 OZ TUBE TP SCH (08:15)
[2022-10-30] MEDS ORDERED: POTASSIUM CHLORIDE 20 MEQ TAB.PRT.SR PO ONE (08:30)
--- NOTE | 2022-10-30 10:47 | NUR ---
RN NOTE SPOKE WITH PATIENTS WILI HOPPER, DISCUSSED PERMCATH PLACEMENT, SHUNT IS NO LONGER WORKING. SON AGREED TO SURGERY INCLUDING ANAESTHESIA, AND BLOOD TRANSFUSION. CONSENTS SIGNED AND PLACED IN CHART. Addendum: 10/30/22 at 1851 by TAMMY MEDINA RN DISREGARD NOTE
--- NOTE | 2022-10-30 11:41 | NUR ---
RN NOTE PATIENTS OLDER BROTHER OLLIE ARGUELLO . WOULD LIKE TO DISCUSS DC PLANNING FOR PATIENT . WILL FORWARD INFORMATION TO PRODUCT MARKETING EXECUTIVE.
[2022-10-30 12:00] VITALS: BP 108/62
[2022-10-30] MEDS: CEFEPIME 2 GM in IV D5W 100 ML IV SCH (12:08)
[2022-10-30] MEDS: VANCOMYCIN HCL 0.75 GM in IV D5W 250 ML IV SCH (13:01)
[2022-10-30 16:00] VITALS: BP 102/64
[2022-10-30] MEDS: HEPARIN INFUSION/D5W 500 ML IV PRN (16:35)
--- NOTE | 2022-10-30 19:30 | NUR ---
GLASS VIAL FILLER OPENING NOTE RECEIVED PATIENT IN BED, WITH HOB ELEVATED, ALERT AND ORIENTED X4. ABLE TO MAKE NEEDS KNOWN. AFEBRILE AND NOT IN ANY FORM OF ACUTE DISTRESS. BREATHING EVEN AND NON LABORED. NO C/O PAIN OR DISCOMFORT AT THIS TIME. WITH IV ACCESS ON CHARLES MIDLINE RUNNING WITH NS AT 200ML/HR AND HEPARIN DRIP AT 1300 UNITS/HR. SAFETY MEASURES IN PLACE. KEPT BED IN LOCKED AND IN LOW POSITION. SIDE RAILS UP X2. ADVISED TO USE THE CALL LIGHT WHEN IN NEED OF ASSISTANCE.
[2022-10-30 20:00] VITALS: BP 118/53
[2022-10-31] VITALS: BP 115/68
[2022-10-31 04:00] VITALS: BP 94/50
[2022-10-31] MEDS: IV NS 0.9% 1,000 ML IV PRN ×2 (04:09→09:29)
--- NOTE | 2022-10-31 06:30 | NUR ---
LITHOGRAPHY CONTACT WORKER CLOSING NOTE PATIENT IN BED, WITH HOB ELEVATED, SLEEPING INTERMITTENTLY. ABLE TO MAKE NEEDS KNOWN. AFEBRILE AND NOT IN ANY FORM OF ACUTE DISTRESS. BREATHING EVEN AND NON LABORED. NO C/O PAIN OR DISCOMFORT THROUGHOUT THE SHIFT. ON TELE MONITORING WITH CURRENT READING OF SR 83 WITH BBB. WITH IV ACCESS ON CHARLES MIDLINE RUNNING WITH NS AT 200ML/HR AND HEPARIN DRIP AT 1300 UNITS/HR., MONITORED FOR ANY S/SX. OF BLEEDING. WITH INTACT ANDERSON CATHETER DRAINING WELL WITH YELLOW URINE OUTPUT, NO HEMATURIA OR SEDIMENTS NOTED. TURNED AND REPOSITIONED EVERY 2 HOURS AND TOLERATED BY ASSIGNED STAFF. SAFETY MEASURES IN PLACE. KEPT BED IN LOCKED AND IN LOW POSITION. SIDE RAILS UP X2. ADVISED TO USE THE CALL LIGHT WHEN IN NEED OF ASSISTANCE. ALL NURSING NEEDS ATTENDED. ENDORSED TO INCOMING SHIFT FOR CONTINUITY OF CARE.
[2022-10-31 07:13] LABS: BASOPHILS % (AUTO) 0.1 % (0.0-2.0); EOSINOPHILS % (AUTO) 2.5 % (0.0-6.0); HEMATOCRIT 30 % (39-51); HEMOGLOBIN 9.9 g/dL (13.5-17.5); LYMPHOCYTES # (AUTO) 0.7 K/uL (0.8-4.8); LYMPHOCYTES % (AUTO) 10.7 % (20.0-44.0); MEAN CORPUSCULAR HGB CONC 33 g/dl (31.0-36.0); MEAN CORPUSCULAR VOLUME 98 fL (80-96); MONOCYTES # (AUTO) 0.3 K/uL (0.1-1.30); MONOCYTES % (AUTO) 4.9 % (2.0-12.0); NEUTROPHILS # (AUTO) 5.4 K/uL (1.8-8.9); NEUTROPHILS % (AUTO) 81.8 % (43.0-81.0); PLATELET COUNT (AUTO) 316 K/uL (150-450); RED BLOOD CELL COUNT(AUTO) 3.11 MIL/uL (4.5-6.0); WHITE BLOOD COUNT (AUTO) 6.6 K/uL (4.3-11.0)
[2022-10-31 07:27] LABS: CALCIUM, SERUM 7.2 mg/dL (8.5-10.1); CARBON DIOXIDE 17 mmol/L (21-32); CHLORIDE 113 mmol/L (98-107); CREATININE 2.6 mg/dL (0.6-1.3); GLUCOSE 98 mg/dL (74-106); MAGNESIUM 1.4 mg/dL (1.8-2.4); PHOSPHORUS 4.3 mg/dL (2.5-4.9); UREA NITROGEN, BLOOD 47 mg/dL (7-18)
[2022-10-31 07:36] LABS: SODIUM SERUM 142 mmol/L (136-145)
[2022-10-31 08:00] VITALS: BP 115/68
[2022-10-31 08:10] LABS: POTASSIUM 2.8 mmol/L (3.5-5.1)
[2022-10-31] MEDS: MIDODRINE HCL (5MG) 5 MG TABLET PO SCH ×3 (08:57→17:33)
[2022-10-31] MEDS: DAKINS QUARTER STRENGTH (0.125%) 480 ML BOTTLE TOP SCH ×2 (08:58→08:59)
[2022-10-31] MEDS: THERAHONEY GEL 1.5 OZ TUBE TP SCH (09:01)
--- NOTE | 2022-10-31 09:56 | NUR ---
tle rn note per dr england ok to to order kcl 60 meq time one k level 2.8
[2022-10-31] MEDS ORDERED: POTASSIUM CHLORIDE 10 MEQ TABLET.SA PO ONE (10:00)
--- NOTE | 2022-10-31 11:17 | NUR ---
telegraph installer note per dr dunn ok to cont to have heparin drip ptt 54.6 ok to resume hepatin drip at 1300 ptt do tomorrow in am
[2022-10-31] MEDS: HEPARIN INFUSION/D5W 500 ML IV PRN (11:34)
[2022-10-31 12:00] VITALS: BP 114/59
[2022-10-31] MEDS: CEFEPIME 2 GM in IV D5W 100 ML IV SCH (14:01)
[2022-10-31] MEDS: VANCOMYCIN HCL 0.75 GM in IV D5W 250 ML IV SCH (14:02)
[2022-10-31] MEDS ORDERED: Potassium Chloride 20 MEQ in IV NS 0.9% 1,000 ML IV SCH (14:30)
[2022-10-31 16:00] VITALS: BP 103/63
--- NOTE | 2022-10-31 19:00 | NUR ---
PATIENT RECEIVED FROM DAY SHIFT NURSE. AAOX3. VITAL SIGNS STABLE. CHARLES MIDLINE PATENT AND INTACT. NO SIGNS OF SHORTNESS OF BREATH, NAUSEA OR VOMITING NOTED. PATIENT DENIES ANY PAIN AT THIS TIME. SACRAL WOUND DRESSING CHANGED BY DAY NURSE. PATIENT RESTING IN BED. NO ACUTE DISTRESS NOTED. WILL CONTNUE TO MONITOR.
[2022-10-31 20:00] VITALS: BP 102/47
[2022-11-01] VITALS: BP 108/93
[2022-11-01 04:00] VITALS: BP 111/82
[2022-11-01 06:18] LABS: BASOPHILS % (AUTO) 0.3 % (0.0-2.0); EOSINOPHILS % (AUTO) 1.8 % (0.0-6.0); HEMATOCRIT 27 % (39-51); LYMPHOCYTES # (AUTO) 0.7 K/uL (0.8-4.8); LYMPHOCYTES % (AUTO) 10.2 % (20.0-44.0); MEAN CORPUSCULAR HGB CONC 33 g/dl (31.0-36.0); MEAN CORPUSCULAR VOLUME 97 fL (80-96); MONOCYTES # (AUTO) 0.4 K/uL (0.1-1.30); MONOCYTES % (AUTO) 5.3 % (2.0-12.0); NEUTROPHILS # (AUTO) 5.8 K/uL (1.8-8.9); NEUTROPHILS % (AUTO) 82.4 % (43.0-81.0); PLATELET COUNT (AUTO) 265 K/uL (150-450); RED BLOOD CELL COUNT(AUTO) 2.82 MIL/uL (4.5-6.0)
[2022-11-01 06:57] LABS: CALCIUM, SERUM 7.1 mg/dL (8.5-10.1); CARBON DIOXIDE 18 mmol/L (21-32); CHLORIDE 112 mmol/L (98-107); CREATININE 2.6 mg/dL (0.6-1.3); GLUCOSE 103 mg/dL (74-106); PHOSPHORUS 4.2 mg/dL (2.5-4.9); SODIUM SERUM 140 mmol/L (136-145); UREA NITROGEN, BLOOD 43 mg/dL (7-18)
[2022-11-01 06:58] LABS: MAGNESIUM 1.2 mg/dL (1.8-2.4); POTASSIUM 2.8 mmol/L (3.5-5.1)
--- NOTE | 2022-11-01 07:15 | NUR ---
REPORT GIVEN TO INCOMING NURSE. PATIENT VITAL SIGNS STABLE. CHARLES ARM IV PATENT AND INTACT. HEPARIN DRIP AT 26ML/HR. AWAITING PTT RESULT. NO SIGNS OF REDNESS OR BLEEDING NOTED. PATIENT RESTING COMFORTABLY IN BED. ALL DRESSING CHANGED LAST NIGHT AND PICTURES TAKEN. PATIENT IN STABLE CONDITION. NO ACUTE DISTRESS NOTED.
--- NOTE | 2022-11-01 07:25 | NUR ---
BELT WEAVER OPENING NOTE RECEIVED PATIENT IN BED, WITH HOB ELEVATED, ALERT AND ORIENTED X4. ABLE TO MAKE NEEDS KNOWN. AFEBRILE AND NOT IN ANY FORM OF ACUTE DISTRESS. BREATHING EVEN AND NON LABORED. WITH IV ACCESS ON CHARLES MIDLINE RUNNING WITH NS AT 200ML/HR AND HEPARIN DRIP AT 1300 UNITS/HR. SAFETY MEASURES IN PLACE. KEPT BED IN LOCKED AND IN LOW POSITION. SIDE RAILS UP X2. ADVISED TO USE THE CALL LIGHT WHEN IN NEED OF ASSISTANCE.
[2022-11-01 08:00] VITALS: BP 95/54
[2022-11-01] MEDS: THERAHONEY GEL 1.5 OZ TUBE TP SCH (08:02)
[2022-11-01] MEDS: MIDODRINE HCL (5MG) 5 MG TABLET PO SCH ×3 (08:02→16:03)
[2022-11-01] MEDS: DAKINS QUARTER STRENGTH (0.125%) 480 ML BOTTLE TOP SCH ×2 (08:02)
[2022-11-01] MEDS: HEPARIN INFUSION/D5W 500 ML IV PRN (08:46)
--- NOTE | 2022-11-01 09:19 | NUR ---
RN NOTE RECEIVED CRITICAL POTASSIUM 2.8K AND MAGNESIUM 1.[address] TEMPLE GIVE 80 MEQ PO KCL AND 5G MAG IV. ORDERED PLACED
[2022-11-01] MEDS ORDERED: POTASSIUM CHLORIDE 20 MEQ TAB.PRT.SR PO ONE (09:30)
[2022-11-01] MEDS ORDERED: Magnesium 1GM/D5W 100ML PREMIX PIGGYBACK IV ONE (09:30)
--- NOTE | 2022-11-01 12:00 | NUR ---
RN NOTE PER DR MAVERICK MORILLO TO DC HEPARIN PT WILL BE PLACED ON PO ANTICOAGULANTS
[2022-11-01] MEDS: VANCOMYCIN HCL 0.75 GM in IV D5W 250 ML IV SCH ×2 (13:00→14:07)
[2022-11-01] MEDS: CEFEPIME 2 GM in IV D5W 100 ML IV SCH (15:20)
[2022-11-01 16:00] VITALS: BP 98/48
[2022-11-01 16:03] VITALS: BP 98/48
--- NOTE | 2022-11-01 16:39 | NUR ---
RN NOTE SPOKE TO NICKY MCDOWELL FROM [facility] GAVE REPORT, ETA 1800.
--- NOTE | 2022-11-01 17:25 | NUR ---
RN NOTE PER DR TEMPLE PATIENT IS PENDING ID CONSULT. AWAITING RX FOR ANTIBIOTICS
--- NOTE | 2022-11-01 18:17 | NUR ---
RN NOTE PATIENT WAS PICKED UP BY EMT LEFT IN STABLE CONDITION.
[2022-11-02] MEDS ORDERED: VANCOMYCIN 500 MG in IV D5W 100ml IV SCH (14:00)
--- NOTE | 2022-11-06 14:03 | NUR ---
APS: SW received call from APS worker, Terrie [phone] who was requesting patient's discharge location. FREDERICK addressed her questions. Per Terrie she will follow up wit pt. at [facility].
== END 2022-11-01 18:29 | DRG 981 ==
LOC: ER 12:01 → TELE1 20:01 → MEDSG1 11-01 10:00
PROVIDERS: ADMIT Internal Medicine; ATTEND Student in an Organized Health Care Education/Training Program
PROC: 05HB33Z Insertion of Infusion Device into Right Basilic Vein, Percutaneous Approach (ICD-10-PCS; 2022-10-23)
PROC: 0KBP0ZZ Excision of Left Hip Muscle, Open Approach (ICD-10-PCS; principal; 2022-10-28)
PROC: 0KBN0ZZ Excision of Right Hip Muscle, Open Approach (ICD-10-PCS; 2022-10-28)
DX: N17.0 Acute kidney failure with tubular necrosis (principal); L89.314 Pressure ulcer of right buttock, stage 4; L89.323 Pressure ulcer of left buttock, stage 3; I82.411 Acute embolism and thrombosis of right femoral vein; I82.431 Acute embolism and thrombosis of right popliteal vein; L03.116 Cellulitis of left lower limb; M86.172 Other acute osteomyelitis, left ankle and foot; E87.6 Hypokalemia; W19.XXXA Unspecified fall, initial encounter; I10 Essential (primary) hypertension; E11.621 Type 2 diabetes mellitus with foot ulcer; Z20.822 Contact with and (suspected) exposure to COVID-19; I95.9 Hypotension, unspecified; E11.42 Type 2 diabetes mellitus with diabetic polyneuropathy; E11.610 Type 2 diabetes mellitus with diabetic neuropathic arthropathy; L97.529 Non-pressure chronic ulcer of other part of left foot with unspecified severity; E86.0 Dehydration; L89.159 Pressure ulcer of sacral region, unspecified stage; D64.9 Anemia, unspecified; Z68.30 Body mass index [BMI] 30.0-30.9, adult; E11.51 Type 2 diabetes mellitus with diabetic peripheral angiopathy without gangrene; E11.69 Type 2 diabetes mellitus with other specified complication
CPT/HCPCS: 36415; 70450-TC; 71045-TC; 73030-TC; 73080-TC; 73620-TC; 73718-TC; 76770-TC; 80048-TC; 80053-TC; 80202-TC; 82962-TC; 83735-TC; 83880; 84100-TC; 84484-TC; 85025-TC; 85730-TC; 87081-TC; 88305-TC; 88312-TC; 92526; 92611-TC; 93307-TC; 93970-TC; 97110-TC; 97530-TC; A4217; A4223; A4349; A6253; A6403; C9803; G0378; J0692; J1644; J1940; J2250; J2270; J2370; J2405; J2704; J2765; J3010; J3370; J3475; J3490; J7030; J7040; J7050; J7060